=== PATIENT | male | born 1995 | race Caucasian/White ===

== ENCOUNTER 2017-11-10 16:18 | Emergency (ER) | payer BC ==
[~2017-11-10] VITALS: Ht 175.3 cm; Wt 118.2 kg
[2017-11-10 16:21] VITALS: BP 150/83; TEMP 97.2
[2017-11-10] MEDS ORDERED: IBU600 MG PO (16:43)
[2017-11-10] MEDS ORDERED: FLEXERIL 1010 MG/TAB PO (16:43)
[2017-11-10] MEDS ORDERED: ULTRAM 50MG TAB50 MG PO (16:43)
[2017-11-10 17:12] VITALS: PULSE 82
== END 2017-11-10 17:13 | disposition home or self-care (01) ==
LOC: COL.ER 16:18 → ICU 16:33 → COL.ER 16:33
DX: M54.5 Low back pain (principal)

== ENCOUNTER 2019-05-07 01:38 | Emergency (ER) | payer BC ==
[~2019-05-07] VITALS: Ht 177.8 cm; Wt 115.9 kg
[~2019-05-07 01:38] MED LIST: FLEXERIL 1010 MG/TAB PO; IBU600 MG PO; ULTRAM 50MG TAB50 MG PO
[2019-05-07 01:41] VITALS: TEMP 97.9
[2019-05-07 02:46] VITALS: BP 152/66; PULSE 79
== END 2019-05-07 02:46 | disposition home or self-care (01) ==
LOC: COL.ER 01:38
DX: S01.81XA Laceration without foreign body of other part of head, initial encounter (principal); Z23 Encounter for immunization; Z88.1 Allergy status to other antibiotic agents; W22.8XXA Striking against or struck by other objects, initial encounter; Y92.59 Other trade areas as the place of occurrence of the external cause